=== PATIENT | female | born 1935 | race Caucasian/White ===

== ENCOUNTER 2017-10-15 14:12 | Emergency (ER) | payer OTHER ==
[~2017-10-15] VITALS: Ht 162.6 cm; Wt 62.6 kg
[~2017-10-15 14:12] MED LIST: ALIGN4 MG PO; ASPIRIN EC81 M1 PO; ATARAX PO; CALCIUM 600 +1 EAC5 PO; FOLIC ACID 40400 MC1 PO; GLUCOSAMINE SU500 MG PO; OXYBUTYNIN 5 MG5 M1 PO; PROLIA60 MG/1 ML SQ; SIMVASTATIN40 MG PO
[2017-10-15] MEDS ORDERED: SINGULAIR 10 MG10 M1 PO (14:23)
[2017-10-15] MEDS ORDERED: ASPIR 8181 MG PO (14:23)
[2017-10-15] MEDS ORDERED: [UNRECOGNIZED DRUG - MIXTURE] (14:23)
[2017-10-15] MEDS ORDERED: MYRBETRIQ25 MG PO (14:24)
[2017-10-15] MEDS ORDERED: TRAZODONE HCL50 MG PO (14:24)
[2017-10-15] MEDS ORDERED: OMEPRAZOLE20 MG PO (14:24)
[2017-10-15] MEDS ORDERED: SIMVASTATIN40 MG PO (14:24)
[2017-10-15] MEDS ORDERED: FOLIC ACID1 MG PO (14:24)
[2017-10-15] MEDS ORDERED: VITAMIN D1000 UNI1 PO (14:24)
[2017-10-15 15:45] VITALS: BP 126/56
== END 2017-10-15 15:46 | disposition home or self-care (01) ==
LOC: M.ERS 14:12
DX: S80.11XA Contusion of right lower leg, initial encounter (principal); M19.90 Unspecified osteoarthritis, unspecified site; E78.5 Hyperlipidemia, unspecified; Z90.710 Acquired absence of both cervix and uterus; Z96.651 Presence of right artificial knee joint; Z88.5 Allergy status to narcotic agent; Z88.1 Allergy status to other antibiotic agents; W20.8XXA Other cause of strike by thrown, projected or falling object, initial encounter; Y93.89 Activity, other specified; Y92.89 Other specified places as the place of occurrence of the external cause; Y99.8 Other external cause status

== ENCOUNTER → 2018-07-02 | Outpatient (CLI) | payer OTHER ==
[~2018-07-02] MED LIST changes: +ASPIR 8181 MG PO; +FOLIC ACID1 MG PO; +MYRBETRIQ25 MG PO; +OMEPRAZOLE20 MG PO; +SINGULAIR 10 MG10 M1 PO; +TRAZODONE HCL50 MG PO; +VITAMIN D1000 UNI1 PO; +[UNRECOGNIZED DRUG - MIXTURE]
== END ==
LOC: M.RAD 06-25 10:00
DX: Z12.31 Encounter for screening mammogram for malignant neoplasm of breast (principal)